=== PATIENT | female | born 1995 | race Caucasian/White ===

== ENCOUNTER → 2020-03-01 | Outpatient (CLI) | payer SELFPAY | LOC: M LABSMTC 10:19 | PROVIDERS: ATTEND Pediatrics | DX: Z20.828 Contact with and (suspected) exposure to other viral communicable diseases (principal) ==

== ENCOUNTER 2020-03-11 21:08 | Emergency (ER) | payer OTHER, SELFPAY ==
[~2020-03-11] VITALS: Ht 162.6 cm; Wt 57.7 kg
[2020-03-12] MEDS ORDERED: FLUORESCEIN OPHTH 1 MG STRIP OS ONE
[2020-03-12] MEDS ORDERED: TETRACAINE 0.5% OPHTH SOLN 4ML OS ONE
[2020-03-12] MEDS ORDERED: CIPR0.3S6 OS (00:08)
[2020-03-12] MEDS ORDERED: CIPROFLOXACIN 0.3% OPHTH SOLN 2.5ML OS ONE (00:15)
[2020-03-12 00:35] VITALS: BP 115/82
== END 2020-03-12 00:38 | disposition home or self-care (01) ==
LOC: M ED 21:08
DX: S05.02XA Injury of conjunctiva and corneal abrasion without foreign body, left eye, initial encounter (principal); Y92.9 Unspecified place or not applicable; Y93.9 Activity, unspecified; Y99.9 Unspecified external cause status

== ENCOUNTER 2020-05-08 17:44 | Emergency (ER) | payer OTHER ==
[~2020-05-08] VITALS: Ht 162.6 cm; Wt 57.5 kg
[~2020-05-08 17:44] MED LIST: CIPR0.3S6 OS
--- OUTSIDE RECORDS SUMMARY | 2020-05-08 17:54 | CCD ---
Author Author [facility] Organization [facility] Address Unknown Phone Unavailable Support Name Relationship Address Phone SSV* Next Of Kin [address] [place] [address] ROOPA ZHANG Next Of Kin [address] [place] [address], [place] [address] Re-disclosure Warning The records that you are about to access may contain information from federally-assisted alcohol or drug abuse programs. If such information is present, then the following federally mandated warning applies: This information has been disclosed to you from records protected by federal confidentiality rules (42 CFR part 2). The federal rules prohibit you from making any further disclosure of this information unless further disclosure is expressly permitted by the written consent of the person to whom it pertains or as otherwise permitted by 42 CFR part 2. A general authorization for the release of medical or other information is NOT sufficient for this purpose. The Federal rules restrict any use of the information to criminally investigate or prosecute any alcohol or drug abuse patient.The records that you are about to access may contain highly sensitive health information, the redisclosure of which is protected by Article 27-F of the [facility] Public Health law. If you continue you may have access to information: Regarding HIV / AIDS; Provided by facilities licensed or operated by the [facility] Office of Mental Health; or Provided by the [facility] Office for People With Developmental Disabilities. If such information is present, then the following [facility] mandated warning applies: This information has been disclosed to you from confidential records which are protected by state law. State law prohibits you from making any further disclosure of this information without the specific written consent of the person to whom it pertains, or as otherwise permitted by law. Any unauthorized further disclosure in violation of state law may result in a fine or custodial sentence or both. A general authorization for the release of medical or other information is NOT sufficient authorization for further disc losure. Insurance Providers Payer name Policy type / Coverage type Policy ID Covered constitution party ID Covered constitution party's relationship to mcgarry Policy Mcgarry Plan Information [facility] [id number] [facility] [id number] SELF PAY ONLY UN SP UN Results ID Date Data Source [id number] 05/01/2020 12:00:00 AM EST [facility] Name Value Range Interpretation Code Description Data Lesley rce(s) Supporting Document(s) SARS coronavirus 2 Ag Negative [facility] This lab was ordered by [facility] and reported by [facility]. ID Date Data Source [id number] 04/29/2020 11:00:00 AM EST [facility] Name Value Range Interpretation Code Description Data Lesley rce(s) Supporting Document(s) SARS coronavirus 2 RNA Not Detected [facility] This lab was ordered by [facility] and reported by [facility]. ID Date Data Source [id number] 04/21/2020 02:00:00 PM EST [facility] Name Value Range Interpretation Code Description Data Lesley rce(s) Supporting Document(s) SARS coronavirus 2 RNA Not Detected [facility] This lab was ordered by [facility] and reported by [facility]. ID Date Data Source [id number] 04/20/2020 12:00:00 AM EST [facility] Name Value Range Interpretation Code Description Data Lesley rce(s) Supporting Document(s) SARS-CoV2 Rapid Antigen Negative [facility] This lab was ordered by [facility] and reported by [facility]. ID Date Data Source [id number] 04/13/2020 11:00:00 AM EST [facility] Name Value Range Interpretation Code Description Data Lesley rce(s) Supporting Document(s) SARS coronavirus 2 RNA Not Detected [facility] This lab was ordered by [facility] and reported by [facility]. ID Date Data Source [id number] 04/07/2020 12:00:00 PM EST [facility] Name Value Range Interpretation Code Description Data Lesley rce(s) Supporting Document(s) SARS coronavirus 2 RNA Not Detected [facility] This lab was ordered by [facility] and reported by [facility]. ID Date Data Source [id number] 03/31/2020 01:27:00 PM EST [facility] Name Value Range Interpretation Code Description Data Lesley rce(s) Supporting Document(s) SARS coronavirus 2 RNA Not Detected [facility] This lab was ordered by [facility] and reported by [facility]. ID Date Data Source [id number] 03/24/2020 05:30:00 AM EST [facility] Name Value Range Interpretation Code Description Data Lesley rce(s) Supporting Document(s) SARS coronavirus 2 RNA Not Detected [facility] This lab was ordered by [facility] and reported by [facility]. ID Date Data Source [id number] 03/19/2020 11:17:00 AM EST [facility] Name Value Range Interpretation Code Description Data Lesley rce(s) Supporting Document(s) SARS coronavirus 2 RNA Not Detected [facility] This lab was ordered by [facility] and reported by [facility]. ID Date Data Source [id number] 03/10/2020 03:05:00 PM EST [facility] Name Value Range Interpretation Code Description Data Lesley rce(s) Supporting Document(s) SARS coronavirus 2 RNA [facility] This lab was ordered by [facility] and reported by [facility]. ID Date Data Source [id number] 03/01/2020 09:10:00 AM EST [facility] Name Value Range Interpretation Code Description Data Lesley rce(s) Supporting Document(s) SARS coronavirus 2 RNA [facility] This lab was ordered by [facility] and reported by [facility]. ID Date Data Source [id number] 02/25/2020 06:00:00 AM EST [facility] Name Value Range Interpretation Code Description Data Lesley rce(s) Supporting Document(s) SARS coronavirus 2 RNA [facility] This lab was ordered by [facility] and reported by [facility]. ID Date Data Source [id number] 02/18/2020 02:37:00 PM EST [facility] Name Value Range Interpretation Code Description Data Lesley rce(s) Supporting Document(s) SARS coronavirus 2 RNA [facility] This lab was ordered by [facility] and reported by [facility]. ID Date Data Source [id number] 01/30/2020 02:02:00 PM EST [facility] Name Value Range Interpretation Code Description Data Lesley rce(s) Supporting Document(s) SARS coronavirus 2 RNA [facility] This lab was ordered by [facility] and reported by [facility]. ID Date Data Source [id number] 01/21/2020 10:30:00 AM EST [facility] Name Value Range Interpretation Code Description Data Lesley rce(s) Supporting Document(s) SARS coronavirus 2 RNA [facility] This lab was ordered by [facility] and reported by [facility]. ID Date Data Source [id number] 01/14/2020 10:38:00 AM EST [facility] Name Value Range Interpretation Code Description Data Lesley rce(s) Supporting Document(s) SARS coronavirus 2 RNA [facility] This lab was ordered by [facility] and reported by [facility]. ID Date Data Source [id number] 01/07/2020 02:00:00 PM EDT [facility] Name Value Range Interpretation Code Description Data Lesley rce(s) Supporting Document(s) SARS coronavirus 2 RNA [facility] This lab was ordered by [facility] and reported by [facility]. ID Date Data Source [id number] 12/31/2019 03:30:00 PM EDT [facility] Name Value Range Interpretation Code Description Data Lesley rce(s) Supporting Document(s) SARS coronavirus 2 RNA [facility] This lab was ordered by [facility] and reported by [facility]. ID Date Data Source [id number] 12/26/2019 10:00:00 AM EDT [facility] Name Value Range Interpretation Code Description Data Lelsey rce(s) Supporting Document(s) SARS coronavirus 2 RNA [facility] This lab was ordered by [facility] and reported by [facility]. ID Date Data Source [id number] 12/10/2019 09:00:00 AM EDT [facility] Name Value Range Interpretation Code Description Data Lesley rce(s) Supporting Document(s) SARS coronavirus 2 RNA [facility] This lab was ordered by [facility] and reported by [facility]. ID Date Data Source [id number] 12/03/2019 09:18:00 AM EDT [facility] Name Value Range Interpretation Code Description Data Lesley rce(s) Supporting Document(s) SARS coronavirus 2 RNA [facility] This lab was ordered by [facility] and reported by [facility]. ID Date Data Source [id number] 11/28/2019 02:39:00 PM EDT [facility] Name Value Range Interpretation Code Description Data Lesley rce(s) Supporting Document(s) SARS coronavirus 2 RNA [facility] This lab was ordered by [facility] and reported by [facility]. ID Date Data Source [id number] 11/19/2019 07:50:00 AM EDT [facility] Name Value Range Interpretation Code Description Data Lesley rce(s) Supporting Document(s) SARS coronavirus 2 RNA [facility] This lab was ordered by [facility] and reported by [facility]. ID Date Data Source [id number] 11/05/2019 09:33:00 AM EDT [facility] Name Value Range Interpretation Code Description Data Lesley rce(s) Supporting Document(s) SARS coronavirus 2 RNA [facility] This lab was ordered by [facility] and reported by [facility]. ID Date Data Source [id number] 10/01/2019 03:32:00 PM EDT [facility] Name Value Range Interpretation Code Description Data Lesley rce(s) Supporting Document(s) SARS coronavirus 2 RNA [facility] This lab was ordered by [facility] and reported by [facility]. ID Date Data Source [id number] 09/24/2019 11:20:00 AM EDT [facility] Name Value Range Interpretation Code Description Data Lesley rce(s) Supporting Document(s) SARS coronavirus 2 RNA [facility] This lab was ordered by [facility] and reported by [facility]. ID Date Data Source [id number] 09/17/2019 03:19:00 PM EDT [facility] Name Value Range Interpretation Code Description Data Lesley rce(s) Supporting Document(s) SARS coronavirus 2 RNA [facility] This lab was ordered by [facility] and reported by [facility]. ID Date Data Source [id number] 09/10/2019 11:43:00 AM EDT [facility] Name Value Range Interpretation Code Description Data Lesley rce(s) Supporting Document(s) SARS CORONAVIRUS 2 RNA [facility] This lab was ordered by [facility] and reported by [facility]. ID Date Data Source [id number] 09/03/2019 03:15:00 PM EDT [facility] Name Value Range Interpretation Code Description Data Lesley rce(s) Supporting Document(s) SARS CORONAVIRUS 2 RNA [facility] This lab was ordered by [facility] and reported by [facility]. ID Date Data Source [id number] 08/27/2019 11:49:00 AM EDT [facility] Name Value Range Interpretation Code Description Data Lesley rce(s) Supporting Document(s) SARS CORONAVIRUS 2 RNA [facility] This lab was ordered by [facility] and reported by [facility]. ID Date Data Source [id number] 08/20/2019 03:29:00 PM EDT [facility] Name Value Range Interpretation Code Description Data Lesley rce(s) Supporting Document(s) SARS CORONAVIRUS 2 RNA [facility] This lab was ordered by [facility] and reported by [facility]. ID Date Data Source [id number] 08/16/2019 02:07:00 PM EDT [facility] Name Value Range Interpretation Code Description Data Lesley rce(s) Supporting Document(s) SARS CORONAVIRUS 2 RNA [facility] This lab was ordered by [facility] and reported by [facility]. ID Date Data Source [id number] 08/13/2019 05:30:00 AM EDT [facility] Name Value Range Interpretation Code Description Data Lesley rce(s) Supporting Document(s) SARS CORONAVIRUS 2 RNA [facility] This lab was ordered by [facility] and reported by [facility]. ID Date Data Source [id number] 08/09/2019 05:30:00 AM EDT [facility] Name Value Range Interpretation Code Description Data Lesley rce(s) Supporting Document(s) SARS CORONAVIRUS 2 RNA [facility] This lab was ordered by [facility] and reported by [facility]. ID Date Data Source [id number] 08/07/2019 07:00:00 AM EDT [facility] Name Value Range Interpretation Code Description Data Lesley rce(s) Supporting Document(s) SARS CORONAVIRUS 2 RNA [facility] This lab was ordered by [facility] and reported by [facility]. ID Date Data Source [id number] 08/01/2019 06:00:00 AM EDT [facility] Name Value Range Interpretation Code Description Data Lesley rce(s) Supporting Document(s) SARS CORONAVIRUS 2 RNA [facility] This lab was ordered by [facility] and reported by [facility]. ID Date Data Source [id number] 07/22/2019 07:24:00 AM EDT [facility] Name Value Range Interpretation Code Description Data Lesley rce(s) Supporting Document(s) SARS CORONAVIRUS 2 RNA [facility] This lab was ordered by [facility] and reported by [facility]. Procedure
[2020-05-08 19:04] LABS: BASO % 0.4 % (0.0-1.0); EOS # 0.1 10^3/uL (0.0-0.5); EOS % 1.6 % (0.0-3.0); HEMATOCRIT 40.6 % (36.0-47.0); HEMOGLOBIN 13.4 g/dl (12.0-15.5); LYMPH # 1.5 10^3/uL (1.5-5.0); LYMPH % 19.9 % (24.0-44.0); MEAN CORPUSCULAR HEMOGLOBIN 29.3 pg (27.0-33.0); MEAN CORPUSCULAR VOLUME 88.8 fl (80.0-96.0); MONO # 0.7 10^3/uL (0.0-0.8); MONO % 8.4 % (2.0-8.0); NEUTROPHILS # 5.3 10^3/uL (1.5-8.5); NEUTROPHILS % 69.3 % (36.0-66.0); PLATELET COUNT, AUTOMATED 275 10^3/uL (150-450); RED BLOOD COUNT 4.57 10^6/uL (4.00-5.40); WHITE BLOOD COUNT 7.7 10^3/uL (4.0-10.0)
--- OUTSIDE RECORDS SUMMARY | 2020-05-08 19:37 | CCD ---
Author Author [facility] Organization [facility] Address Unknown Phone Unavailable Support Name Relationship Address Phone SSV* Next Of Kin [address] [place] [address] ROOPA ZHANG Next Of Kin [address] [place] [address], [place] [address] Re-disclosure Warning The records that you are [...] is protected by Article 27-F of the [facility] Public Health law. If you continue you may have access to information: Regarding HIV / AIDS; Provided by facilities licensed or operated by the [facility] Office of Mental Health; or Provided by the [facility] Office for People With Developmental Disabilities. If such information is present, then the following [facility] mandated warning applies: This information has been [...] law may result in a fine or fdc sentence or both. A general authorization for the release of medical or other information is NOT sufficient authorization for further disc losure. Insurance Providers Payer name Policy type / Coverage type Policy ID Covered green party ID Covered green party's relationship to mcgarry Policy Mcgarry Plan Information [facility] [id number] [facility] [id number] SELF PAY ONLY UN SP UN Results ID Date Data Source [id number] 05/05/2020 12:00:00 PM EST [facility] Name Value Range Interpretation Code Description Data Lesley rce(s) Supporting Document(s) SARS coronavirus 2 RNA Not Detected [facility] [place] This lab was ordered by [facility] and reported by [facility]. ID Date Data Source [id number] 05/01/2020 12:00:00 AM EST [facility] Name Value Range Interpretation Code Description Data Lesley rce(s) Supporting Document(s) SARS coronavirus 2 Ag Negative [facility] This lab was ordered by [facility] and reported by [facility]. ID Date Data Source [id number] 04/29/2020 11:00:00 AM EST [facility] Name Value Range Interpretation Code Description Data Lesley rce(s) Supporting Document(s) SARS coronavirus 2 RNA Not Detected [facility] [place] This lab was ordered by [facility] and reported by [facility]. ID Date Data Source [id number] 04/21/2020 02:00:00 PM EST [facility] Name Value Range Interpretation Code Description Data Lesley rce(s) Supporting Document(s) SARS coronavirus 2 RNA Not Detected [facility] [place] This lab was ordered by [facility] and reported by [facility]. ID Date Data Source [id number] 04/20/2020 12:00:00 AM EST [facility] Name Value Range Interpretation Code Description Data Lesley rce(s) Supporting Document(s) SARS-CoV2 Rapid Antigen Negative [facility] This lab was ordered by [facility] and reported by [facility]. ID Date Data Source [id number] 04/13/2020 11:00:00 AM EST [facility] Name Value Range Interpretation Code Description Data Lesley rce(s) Supporting Document(s) SARS coronavirus 2 RNA Not Detected [facility] [place] This lab was ordered by [facility] and reported by [facility]. ID Date Data Source [id number] 04/07/2020 12:00:00 PM EST [facility] Name Value Range Interpretation Code Description Data Lesley rce(s) Supporting Document(s) SARS coronavirus 2 RNA Not Detected [facility] [place] This lab was ordered by [facility] and reported by [facility]. ID Date Data Source [id number] 03/31/2020 01:27:00 PM EST [facility] Name Value Range Interpretation Code Description Data Lesley rce(s) Supporting Document(s) SARS coronavirus 2 RNA Not Detected [facility] [place] This lab was ordered by [facility] and reported by [facility]. ID Date Data Source [id number] 03/24/2020 05:30:00 AM EST [facility] Name Value Range Interpretation Code Description Data Lesley rce(s) Supporting Document(s) SARS coronavirus 2 RNA Not Detected [facility] [place] This lab was ordered by [facility] and reported by [facility]. ID Date Data Source [id number] 03/19/2020 11:17:00 AM EST [facility] Name Value Range Interpretation Code Description Data Lesley rce(s) Supporting Document(s) SARS coronavirus 2 RNA Not Detected [facility] [place] This lab was ordered by [facility] and reported by [facility]. ID Date Data Source [id number] 03/10/2020 03:05:00 PM EST [facility] Name Value Range Interpretation Code Description Data Lesley rce(s) Supporting Document(s) SARS coronavirus 2 RNA [facility] This lab was ordered by [facility] and reported by [facility]. ID Date Data Source [id number] 03/01/2020 09:10:00 AM EST [facility] Name Value Range Interpretation Code Description Data Lesley rce(s) Supporting Document(s) SARS coronavirus 2 RNA [facility] This lab was ordered by [facility] and reported by [facility]. ID Date Data Source [id number] 02/25/2020 06:00:00 AM EST [facility] Name Value Range Interpretation Code Description Data Lesley rce(s) Supporting Document(s) SARS coronavirus 2 RNA [facility] This lab was ordered by [facility] and reported by [facility]. ID Date Data Source [id number] 02/18/2020 02:37:00 PM EST [facility] Name Value Range Interpretation Code Description Data Lesley rce(s) Supporting Document(s) SARS coronavirus 2 RNA [facility] This lab was ordered by [facility] and reported by [facility]. ID Date Data Source [id number] 01/30/2020 02:02:00 PM EST [facility] Name Value Range Interpretation Code Description Data Lesley rce(s) Supporting Document(s) SARS coronavirus 2 RNA [facility] This lab was ordered by [facility] and reported by [facility]. ID Date Data Source [id number] 01/21/2020 10:30:00 AM EST [facility] Name Value Range Interpretation Code Description Data Lesley rce(s) Supporting Document(s) SARS coronavirus 2 RNA [facility] This lab was ordered by [facility] and reported by [facility]. ID Date Data Source [id number] 01/14/2020 10:38:00 AM EST [facility] Name Value Range Interpretation Code Description Data Lesley rce(s) Supporting Document(s) SARS coronavirus 2 RNA [facility] This lab was ordered by [facility] and reported by [facility]. ID Date Data Source [id number] 01/07/2020 02:00:00 PM EDT [facility] Name Value Range Interpretation Code Description Data Lesley rce(s) Supporting Document(s) SARS coronavirus 2 RNA [facility] This lab was ordered by [facility] and reported by [facility]. ID Date Data Source [id number] 12/31/2019 03:30:00 PM EDT [facility] Name Value Range Interpretation Code Description Data Lesley rce(s) Supporting Document(s) SARS coronavirus 2 RNA [facility] This lab was ordered by [facility] and reported by [facility]. ID Date Data Source [id number] 12/26/2019 10:00:00 AM EDT [facility] Name Value Range Interpretation Code Description Data Lesley rce(s) Supporting Document(s) SARS coronavirus 2 RNA [facility] This lab was ordered by [facility] and reported by [facility]. ID Date Data Source [id number] 12/10/2019 09:00:00 AM EDT [facility] Name Value Range Interpretation Code Description Data Lesley rce(s) Supporting Document(s) SARS coronavirus 2 RNA [facility] This lab was ordered by [facility] and reported by [facility]. ID Date Data Source [id number] 12/03/2019 09:18:00 AM EDT [facility] Name Value Range Interpretation Code Description Data Lesley rce(s) Supporting Document(s) SARS coronavirus 2 RNA [facility] This lab was ordered by [facility] and reported by [facility]. ID Date Data Source [id number] 11/28/2019 02:39:00 PM EDT [facility] Name Value Range Interpretation Code Description Data Lesley rce(s) Supporting Document(s) SARS coronavirus 2 RNA [facility] This lab was ordered by [facility] and reported by [facility]. ID Date Data Source [id number] 11/19/2019 07:50:00 AM EDT [facility] Name Value Range Interpretation Code Description Data Lesley rce(s) Supporting Document(s) SARS coronavirus 2 RNA [facility] This lab was ordered by [facility] and reported by [facility]. ID Date Data Source [id number] 11/05/2019 09:33:00 AM EDT [facility] Name Value Range Interpretation Code Description Data Lesley rce(s) Supporting Document(s) SARS coronavirus 2 RNA [facility] This lab was ordered by [facility] and reported by [facility]. ID Date Data Source [id number] 10/01/2019 03:32:00 PM EDT [facility] Name Value Range Interpretation Code Description Data Lesley rce(s) Supporting Document(s) SARS coronavirus 2 RNA [facility] This lab was ordered by [facility] and reported by [facility]. ID Date Data Source [id number] 09/24/2019 11:20:00 AM EDT [facility] Name Value Range Interpretation Code Description Data Lesley rce(s) Supporting Document(s) SARS coronavirus 2 RNA [facility] This lab was ordered by [facility] and reported by [facility]. ID Date Data Source [id number] 09/17/2019 03:19:00 PM EDT [facility] Name Value Range Interpretation Code Description Data Lesley rce(s) Supporting Document(s) SARS coronavirus 2 RNA [facility] This lab was ordered by [facility] and reported by [facility]. ID Date Data Source [id number] 09/10/2019 11:43:00 AM EDT [facility] Name Value Range Interpretation Code Description Data Lesley rce(s) Supporting Document(s) SARS CORONAVIRUS 2 RNA [facility] This lab was ordered by [facility] and reported by [facility]. ID Date Data Source [id number] 09/03/2019 03:15:00 PM EDT [facility] Name Value Range Interpretation Code Description Data Lesley rce(s) Supporting Document(s) SARS CORONAVIRUS 2 RNA [facility] This lab was ordered by [facility] and reported by [facility]. ID Date Data Source [id number] 08/27/2019 11:49:00 AM EDT [facility] Name Value Range Interpretation Code Description Data Lesley rce(s) Supporting Document(s) SARS CORONAVIRUS 2 RNA [facility] This lab was ordered by [facility] and reported by [facility]. ID Date Data Source [id number] 08/20/2019 03:29:00 PM EDT [facility] Name Value Range Interpretation Code Description Data Lesley rce(s) Supporting Document(s) SARS CORONAVIRUS 2 RNA [facility] This lab was ordered by [facility] and reported by [facility]. ID Date Data Source [id number] 08/16/2019 02:07:00 PM EDT [facility] Name Value Range Interpretation Code Description Data Lesley rce(s) Supporting Document(s) SARS CORONAVIRUS 2 RNA [facility] This lab was ordered by [facility] and reported by [facility]. ID Date Data Source [id number] 08/13/2019 05:30:00 AM EDT [facility] Name Value Range Interpretation Code Description Data Lesley rce(s) Supporting Document(s) SARS CORONAVIRUS 2 RNA [facility] This lab was ordered by [facility] and reported by [facility]. ID Date Data Source [id number] 08/09/2019 05:30:00 AM EDT [facility] Name Value Range Interpretation Code Description Data Lesley rce(s) Supporting Document(s) SARS CORONAVIRUS 2 RNA [facility] This lab was ordered by [facility] and reported by [facility]. ID Date Data Source [id number] 08/07/2019 07:00:00 AM EDT [facility] Name Value Range Interpretation Code Description Data Lesley rce(s) Supporting Document(s) SARS CORONAVIRUS 2 RNA [facility] This lab was ordered by [facility] and reported by [facility]. ID Date Data Source [id number] 08/01/2019 06:00:00 AM EDT [facility] Name Value Range Interpretation Code Description Data Lesley rce(s) Supporting Document(s) SARS CORONAVIRUS 2 RNA [facility] This lab was ordered by [facility] and reported by [facility]. ID Date Data Source [id number] 07/22/2019 07:24:00 AM EDT [facility] Name Value Range Interpretation Code Description Data Lesley rce(s) Supporting Document(s) SARS CORONAVIRUS 2 RNA [facility] This lab was ordered by [facility] and reported by [facility]. Procedure
[2020-05-08 19:46] LABS: BLOOD UREA NITROGEN 10 MG/DL (7-18); CARBON DIOXIDE LEVEL 26 MEQ/L (21-32); CHLORIDE LEVEL 108 MEQ/L (98-107); CREATININE FOR GFR 0.65 MG/DL (0.55-1.30); GLOMERULAR FILTRATION RATE > 60.0 (>60); GLUCOSE, FASTING 85 MG/DL (70-100); HCG, SERUM QUANTITATIVE 1267 MIU/ML; POTASSIUM SERUM 3.9 MEQ/L (3.5-5.1); SODIUM LEVEL 139 MEQ/L (136-145)
--- NOTE | 2020-05-08 20:14 | REPVR ---
PROCEDURE INFORMATION: Exam: US , Limited and US , Transvaginal Exam date and time: 05/08/2020 7:54 PM Age: 24 years old Clinical indication: Lmp or gestational age (in weeks): 03/31/2020; Other: Vaginal bleeding; ; Additional info: Vag bleeding x 3days, 5-8 wks preg TECHNIQUE: Imaging protocol: Real-time ultrasound of the maternal uterus with image documentation. Transvaginal imaging was used for better evaluation of the fetus, adnexa, and/or cervix. Exam focused on the clinical indication. COMPARISON: No relevant prior studies available. FINDINGS: Gestation: There is a single gestational sac. No yolk sac is present. No pole is seen. BIOMETRY: Mean sac diameter: There is a single intrauterine gestational sac measuring 0.52 x 0.19 x 0.35 cm for a mean sac diameter of 0.35 cm for menstrual age of 4 weeks and 6 days. MATERNAL: Uterus: Transabdominally, the uterus is incompletely distended. The uterus is not well seen. Endovaginally, the uterus is retroflexed and retroverted measuring at least 9.2 x 5.5 by 6.3 cm. Right adnexa: Transabdominally, the right ovary is not seen as a separate structure. Trans vaginally, the right ovary measures 2.9 x 1.7 x 1.9 cm. Subcentimeter follicles are present. Blood flow seen in the right ovary on color Doppler and pulse Doppler examination. Left adnexa: Transabdominally, the left ovary is not seen as a separate structure. Transvaginally, left ovary measures 3.8 x 2.1 x 2.4 cm and contains a cyst measuring 1.6 cm in maximum diameter. Blood flow seen in the left ovary on color Doppler and pulse Doppler examination. Bowel: There is an increased amount of bowel gas in the pelvis seen on the transabdominal portion of the study.. IMPRESSION: Single intrauterine gestational sac with an estimated menstrual age of 4 weeks and 6 days. Expected date of delivery 01/04/2021. No pole. No yolk sac. Serial beta HCG measurement and follow-up ultrasound might be considered to confirm the presence of a live Electronically signed by: Pooja Hernandez On 05/08/2020 20:14:51 PM
[2020-05-08 20:45] VITALS: BP 103/67
== END 2020-05-08 20:51 | disposition home or self-care (01) ==
LOC: M ED 17:44
DX: O46.91 Antepartum hemorrhage, unspecified, first trimester (principal); Z3A.01 Less than 8 weeks gestation of pregnancy

== ENCOUNTER → 2020-05-11 | Outpatient (CLI) | payer OTHER | LOC: M LAB 10:54 | PROVIDERS: ATTEND Physician Assistant | DX: O46.90 Antepartum hemorrhage, unspecified, unspecified trimester (principal) ==

== ENCOUNTER → 2020-05-12 | Outpatient (CLI) | payer OTHER, SELFPAY ==
--- NOTE | 2020-05-12 10:23 | REP ---
INDICATION: RULE OUT ECTOPIC COMPARISON: 05/08/2020 TECHNIQUE: Transabdominal and transvaginal 1st trimester obstetrical ultrasound with color Doppler evaluation. FINDINGS: Heterogeneous retroverted uterus measures 9.2 x 7.7 x 5.6 cm. Cervix measures 3.1 cm in length and appears closed. Decidual reaction is appreciated with empty gestational sac. Mean sac diameter of 14 mm corresponds to 5 weeks 4 days gestational age and no yolk sac or pole is currently identified. Bilateral ovaries are normal in appearance and vascularity. Right ovary measures 2.5 x 2.0 x 1.9 cm (RI 0.61). Left ovary measures 3.9 x 2.7 x 2.5 cm (RI 0.60) and includes 2.1 cm presumed corpus luteal cyst. Small amount of simple appearing free fluid in the pelvis is nonspecific. IMPRESSION: Findings as described above suggest early versus blighted ovum. Differential diagnosis less likely includes ectopic . Correlation with serial HCG levels and follow-up ultrasound may be warranted. <Electronically signed by Kendell Vargas > 05/12/20 [id number]
== END ==
LOC: M RAD 08:52
PROVIDERS: ATTEND Obstetrics & Gynecology
DX: O00.01 Abdominal pregnancy with intrauterine pregnancy (principal); Z3A.00 Weeks of gestation of pregnancy not specified

== ENCOUNTER 2021-06-25 04:17 | Emergency (ER) | payer OTHER, SELFPAY ==
[~2021-06-25] VITALS: Ht 162.6 cm; Wt 54.5 kg
[2021-06-25] MEDS ORDERED: ZOLO100T PO (04:29)
[2021-06-25] MEDS ORDERED: NS 1,000 ML IV ONE (06:25)
[2021-06-25 06:50] LABS: BASO % 0.3 % (0.0-1.0); EOS # 0.1 10^3/uL (0.0-0.5); EOS % 0.8 % (0.0-3.0); HEMATOCRIT 41.1 % (36.0-47.0); HEMOGLOBIN 14.4 g/dl (12.0-15.5); LYMPH # 1.2 10^3/uL (1.5-5.0); MEAN CORPUSCULAR HEMOGLOBIN 31.3 pg (27.0-33.0); MEAN CORPUSCULAR VOLUME 89.3 fl (80.0-96.0); MONO # 0.9 10^3/uL (0.0-0.8); MONO % 6.3 % (2.0-8.0); NEUTROPHILS # 12.3 10^3/uL (1.5-8.5); NEUTROPHILS % 84.2 % (36.0-66.0); PLATELET COUNT, AUTOMATED 252 10^3/uL (150-450); WHITE BLOOD COUNT 14.6 10^3/uL (4.0-10.0)
[2021-06-25 07:11] LABS: BLOOD UREA NITROGEN 11 MG/DL (7-18); CALCIUM LEVEL 9.2 MG/DL (8.5-10.1); CARBON DIOXIDE LEVEL 28 MEQ/L (21-32); CHLORIDE LEVEL 107 MEQ/L (98-107); CREATININE FOR GFR 0.71 MG/DL (0.55-1.30); GLOMERULAR FILTRATION RATE > 60.0 (>60); GLUCOSE, FASTING 94 MG/DL (70-100); POTASSIUM SERUM 4.3 MEQ/L (3.5-5.1); SODIUM LEVEL 139 MEQ/L (136-145)
[2021-06-25] MEDS ORDERED: cefTRIAXone SOD 1 GM in D5W MINI-BAG PLUS 50 ML IV ONE (07:40)
[2021-06-25] MEDS ORDERED: CEFD300C41 PO (09:36)
[2021-06-25] MEDS ORDERED: IBUP-1022 PO (09:36)
[2021-06-25 09:54] VITALS: BP 120/72
== END 2021-06-25 09:53 | disposition home or self-care (01) ==
LOC: M ED 04:17
DX: N39.0 Urinary tract infection, site not specified (principal); N93.9 Abnormal uterine and vaginal bleeding, unspecified
CPT/HCPCS: 71046; 76830; 76856; 80048; 81001; 84702; 85025; 87088; 87186; 93005; 93976; 96361; 96374; 99284; J0696